=== PATIENT | female | born 1950 | race Asian ===

== ENCOUNTER 2023-01-03 20:45 | Inpatient (IN) | payer OTHER ==
[~2023-01-03] VITALS: Ht 160 cm; Wt 57.6 kg
[~2023-01-03 20:45] MED LIST: DEXT1CAP3 PO; DOCU-299 PO; HYDR-5122 PO; LANS30EC3 PO; LEVO500T6 PO; LOV40I SUBQ; MAGN400S60 PO; NA P135N9 RC; PEG15DRO10 OP; PROP20TA29 PO; ZOLP5TAB1 PO; [UNRECOGNIZED DRUG - CODE] PO
[2023-01-03 20:50] VITALS: BP 147/95
[2023-01-03] MEDS ORDERED: NACL 0.9% 2,000 ML IV ONE (21:05)
[2023-01-03] MEDS ORDERED: ACETAMINOPHEN 650 MG SUPP RC ONE (21:15)
--- NOTE | 2023-01-03 21:17 | NUR ---
temprure 102.9 oral
--- NOTE | 2023-01-03 21:20 | NUR ---
Patient resting in bed, A/Ox4, chest rise and fall symmetrical, no s/s of pain or s/s of distress, on monitor. Addendum: 01/04/23 at 0240 by [email or web address] Patient resting in bed, awake, chest rise and fall symmetrical, no s/s of pain or s/s of distress, on monitor.
[2023-01-03] MEDS ORDERED: cefTRIAXone 1,000 MG VIAL ONE (21:24)
[2023-01-03 21:29] LABS: BASOPHILS # (AUTO) 0.1 K/uL (0.00-0.22); BASOPHILS % (AUTO) 0.5 % (0.0-2.0); EOSINOPHILS % (AUTO) 0.1 % (0.0-4.0); HEMOGLOBIN 12.5 g/dL (12.0-16.0); LYMPHOCYTES # (AUTO) 1.7 K/uL (2.5-16.5); LYMPHOCYTES % (AUTO) 9.5 % (20.5-51.1); MEAN CORPUSCULAR HEMOGLOBIN 29 pg (27-31); MEAN CORPUSCULAR HGB CONC 34 g/dL (33-37); MEAN CORPUSCULAR VOLUME 86.3 fL (80-94); MONOCYTES # (AUTO) 1.3 K/uL (0.8-1.0); MONOCYTES % (AUTO) 7.2 % (1.7-9.3); NEUTROPHILS # (AUTO) 14.7 K/uL (1.8-7.7); NEUTROPHILS % (AUTO) 82.7 % (42.2-75.2); PLATELET COUNT (AUTO) 290 K/uL (140-450); RED BLOOD CELL COUNT(AUTO) 4.28 MIL/uL (4.20-5.40); RED CELL DISTRIBUTION WIDTH 13.8 % (11.6-13.7); WHITE BLOOD COUNT (AUTO) 17.7 K/uL (4.8-10.8)
[2023-01-03 21:46] LABS: ALBUMIN 2.9 g/dL (3.4-5.0); ANION GAP 14.8 (8-16); ASPARTATE AMINOTRANSFERASE 34 U/L (15-37); CARBON DIOXIDE 23.4 mmol/L (21-32); CHLORIDE 87 mmol/L (98-107); CREATININE 0.8 mg/dL (0.6-1.3); POTASSIUM 4.2 mmol/L (3.5-5.1); SODIUM SERUM 121 mmol/L (136-145); TOTAL BILIRUBIN 0.9 mg/dL (0.0-1.0); UREA NITROGEN, BLOOD 12 mg/dL (7-18)
[2023-01-03 21:50] LABS: GLUCOSE 471 mg/dL (74-106)
[2023-01-03 21:55] LABS: APPEARANCE,URINE CLEAR (CLEAR); BILIRUBIN,URINE NEGATIVE (NEGATIVE); BLOOD, URINE 1+ (NEGATIVE); COLOR,URINE YELLOW (YELLOW); LEUKOCYTE ESTERASE ,URINE 1+ (NEGATIVE); NITRITE, URINE POSITIVE (NEGATIVE); UGLUCOSE 3+ (NEGATIVE)
[2023-01-03 22:03] LABS: YEAST,URINE Few /HPF (None Seen)
[2023-01-03] MEDS ORDERED: HYDROcodone/APAP 5/325 MG 1 TAB TAB PO PRN (22:35)
[2023-01-03] MEDS ORDERED: MAGNESIUM OXIDE 400 MG TAB PO PRN (22:35)
[2023-01-03] MEDS ORDERED: MAG SULF 2000 MG/WATER PREMIX 50 ML IV PRN (22:35)
[2023-01-03] MEDS ORDERED: ONDANSETRON 4 MG/2 ML VIAL IVP PRN (22:35)
[2023-01-03] MEDS ORDERED: KCL 20 MEQ IN 100 mL PREMIX 200 ML IV PRN (22:35)
[2023-01-03] MEDS ORDERED: POTASSIUM CHLORIDE 10 MEQ TABER PO PRN (22:35)
[2023-01-03] MEDS: NACL 0.9% 1,000 ML IV SCH (22:57)
--- NOTE | 2023-01-03 23:30 | NUR ---
Patient resting in bed, awake, chest rise and fall symmetrical, no s/s of pain or s/s of distress, on monitor.
[2023-01-04] VITALS (8 sets, daily range): BP systolic 102–134; BP diastolic 42–86
[2023-01-04] MEDS ORDERED: ACETAMINOPHEN 650 MG SUPP RC ONE (00:30)
--- NOTE | 2023-01-04 01:00 | NUR ---
Patient resting in bed, awake, chest rise and fall symmetrical, no s/s of pain or s/s of distress, on monitor.
[2023-01-04] MEDS ORDERED: D50SYR IV (01:20)
[2023-01-04] MEDS ORDERED: FAMO-90 PO (01:20)
[2023-01-04] MEDS ORDERED: ASCO-5 PO (01:20)
[2023-01-04] MEDS ORDERED: ASPI-1856 PO (01:20)
[2023-01-04] MEDS ORDERED: LACT1TAB35 PO (01:20)
[2023-01-04] MEDS ORDERED: GLUC1VIA (01:20)
[2023-01-04] MEDS ORDERED: METF-346 PO (01:20)
[2023-01-04] MEDS ORDERED: BISA-246 RC (01:20)
[2023-01-04] MEDS ORDERED: ACET-2619 PO ×2 (01:20)
[2023-01-04] MEDS ORDERED: ALBU6.7H6 IH (01:20)
[2023-01-04] MEDS ORDERED: MULT-1328 PO (01:20)
[2023-01-04] MEDS ORDERED: [UNRECOGNIZED DRUG - CODE] PO (01:20)
[2023-01-04] MEDS ORDERED: CRAN450T5 PO (01:20)
[2023-01-04] MEDS ORDERED: RISP0.5T3 PO (01:21)
--- NOTE | 2023-01-04 02:39 | NUR ---
Patient will be admitted to care of dr. Jones. Admited to ICU. Will go to room 12. Belongings list completed. Report to Nuris MARTÍNEZ. Nuris MARTÍNEZ verbalized understanding of report, no further questions. Addendum: 01/04/23 at 0303 by [email or web address] Patient will be admitted to care of dr. Jones. Admited to ICU. Will go to room 3. Belongings list completed. Report to Nuris MARTÍNEZ. Nuris MARTÍNEZ verbalized understanding of report, no further questions.
--- NOTE | 2023-01-04 02:50 | NUR ---
RECEIVED PT. FROM ER AND REPORT GIVEN BY MAURICIO CASEY. PT. AWAKE, ALERT AND ORIENTED. ABLE TO FOLLOW COMMANDS. ON ROOM AIR WITH 98% O2 SAT. BILATERAL LUNG SOUNDS CLEAR. SINUS TACHYCARDIA ON THE MONITOR. IV TO RIGHT AC 20G CAPPED AND FLUSHED. IV TO LEFT FOREARM 20G INFUSING NS AT 80 ML/HR. RECEIVED PT. TEMP AFEBRILE 98.6. DIET CONSISTENT CARBOHYDRATE. ABDOMINAL SOUNDS ACTIVE. URINE INCONTINENT. SKIN INTACT. EYES PERRLA. PLACED CALL LIGHT WITHIN REACH. MAKE ALL NEEDS KNOWN. BEDLOCK AND PLACED IN THE LOWEST HEIGHT. NO S/S OF RESPIRATORY DISTRESS AND NO S/S OF PAIN. WILL CONT. TO MONITOR.
--- NOTE | 2023-01-04 05:10 | NUR ---
PROVIDED PT. PERSONAL HYGIENE, SPONGE BATH, ORAL CARE AND PT. COOPERATES WELL.
[2023-01-04 05:18] LABS: HEMATOCRIT 33.1 % (36-48); MEAN CORPUSCULAR HEMOGLOBIN 29 pg (27-31); MEAN CORPUSCULAR HGB CONC 33 g/dL (33-37); MEAN CORPUSCULAR VOLUME 87.1 fL (80-94); PLATELET COUNT (AUTO) 252 K/uL (140-450); RED CELL DISTRIBUTION WIDTH 13.7 % (11.6-13.7); WHITE BLOOD COUNT (AUTO) 23.9 K/uL (4.8-10.8)
[2023-01-04 05:35] LABS: ANION GAP 14.3 (8-16); CARBON DIOXIDE 21.1 mmol/L (21-32); CHLORIDE 98 mmol/L (98-107); CREATININE 0.7 mg/dL (0.6-1.3); GLUCOSE 359 mg/dL (74-106); POTASSIUM 3.4 mmol/L (3.5-5.1); SODIUM SERUM 130 mmol/L (136-145); UREA NITROGEN, BLOOD 8 mg/dL (7-18)
[2023-01-04 05:38] LABS: MAGNESIUM 1.5 mg/dL (1.8-2.4); PHOSPHORUS 2.1 mg/dL (2.5-4.9)
[2023-01-04 06:27] LABS: LYMPHOCYTES % (MANUAL) 5 % (20-46)
[2023-01-04 06:28] LABS: BASOPHILS % (MANUAL) 0 % (0-2); EOSINOPHILS % (MANUAL) 1 % (0-4); MONOCYTES % (MANUAL) 9 % (5-12)
--- NOTE | 2023-01-04 07:11 | NUR ---
REPORT GIVEN TO DAY SHIFT MAURICIO SIMS FOR CONTINUITY OF CARE. Addendum: 01/04/23 at 2214 by Vanessa Marquez RN, RN 1900-REPORT GIVEN BY LEVI MARTÍNEZ DAY SHIFT ICU NURSE
--- NOTE | 2023-01-04 07:12 | NUR ---
RECEIVED BEDSIDE REPORT FROM SHORTAGE WORKER RNCHADD FOR CONTINUITY OF CARE. PT AWAKE, ALERT AND ABLE TO MAKE NEEDS KNOWN. ROOM AIR, RESPIRATIONS EVEN AND UNLABORED. SR ON MONITOR. 20G IV TO RAC SALINE LOCK. 20G IV TO L FA INFUSING NS AT 80 ML/HR. MILD WEAKNESS THROUGHOUT. STANDARD PRECAUTION. HOB 30 DEGREES ASPIRATION PRECAUTION. CALL LIGHT WITHIN REACH. BED LOCKED AND IN LOWEST POSITION.
[2023-01-04] MEDS: NACL 0.9% 1,000 ML IV SCH ×2 (13:40→23:38)
--- NOTE | 2023-01-04 14:00 | NUR ---
SEEN AND EXAMINED BY DR. BECERRIL. NEW ORDERS RECEIVED.
[2023-01-04] MEDS ORDERED: DEXTROSE 50% 50 ML SYR IVP PRN (15:00)
[2023-01-04] MEDS: CEFEPIME 2,000 MG in DEXTROSE 5% 100 ML IV SCH (15:01)
[2023-01-04] MEDS: ACETAMINOPHEN 325 MG TAB PO PRN (15:39)
[2023-01-04] MEDS: BLOOD GLUCOSE MONITORING 1 DEV DEV FS SCH ×2 (16:33→20:43)
--- NOTE | 2023-01-04 16:51 | NUR ---
BLOOD SUGAR 482, PAGED DR. FOURNIER WHO ORDERED TO ADMINISTER 10 UNITS HUMALOG SQ.
[2023-01-04] MEDS: INSULIN LISPRO SLIDING SCALE 100 UNITS/ML VIAL SUBQ PRN ×2 (16:54→20:45)
--- NOTE | 2023-01-04 19:00 | NUR ---
ENDORSED BEDSIDE REPORT TO BOB, CARBONATION TESTER PASTOR, FOR CONTINUITY OF CARE.
--- NOTE | 2023-01-04 22:14 | NUR ---
1999- QUIETLY RESTING IN BED, HOB UP 60 DEGREE, SIDERAILS UP TIMES 3. BED IN LOW POS.
--- NOTE | 2023-01-04 22:16 | NUR ---
2200 - REPOSITIONED IN BED
[2023-01-05] VITALS: BP 98/53
[2023-01-05] MEDS: ACETAMINOPHEN 325 MG TAB PO PRN ×2 (03:46→03:49)
--- NOTE | 2023-01-05 03:51 | NUR ---
2300- INCONTINENT MODERATE AMT OF URINE, PERINIAL CARE DONE
--- NOTE | 2023-01-05 03:53 | NUR ---
0349- TYLENOL 650 MG PO GIVEN FOR TEMP 99.9
[2023-01-05 04:00] VITALS: BP 124/78
[2023-01-05 05:56] LABS: BASOPHILS # (AUTO) 0.1 K/uL (0.00-0.22); BASOPHILS % (AUTO) 0.4 % (0.0-2.0); EOSINOPHILS # (AUTO) 0.1 K/uL (0-0.4); HEMATOCRIT 32.5 % (36-48); HEMOGLOBIN 10.7 g/dL (12.0-16.0); LYMPHOCYTES # (AUTO) 1.4 K/uL (2.5-16.5); LYMPHOCYTES % (AUTO) 10.7 % (20.5-51.1); MEAN CORPUSCULAR HEMOGLOBIN 29 pg (27-31); MEAN CORPUSCULAR HGB CONC 33 g/dL (33-37); MEAN CORPUSCULAR VOLUME 87.2 fL (80-94); MONOCYTES # (AUTO) 1.7 K/uL (0.8-1.0); MONOCYTES % (AUTO) 12.9 % (1.7-9.3); NEUTROPHILS # (AUTO) 9.8 K/uL (1.8-7.7); PLATELET COUNT (AUTO) 264 K/uL (140-450); RED BLOOD CELL COUNT(AUTO) 3.72 MIL/uL (4.20-5.40); RED CELL DISTRIBUTION WIDTH 13.9 % (11.6-13.7)
--- NOTE | 2023-01-05 06:15 | NUR ---
0400-AM CARE AND LINEN CHANGED DONE
--- NOTE | 2023-01-05 06:16 | NUR ---
06- REPORT GVEN TO MATTY DELEON RN AND TRANSFFERRED TO 110 TELE UNIT NOW
[2023-01-05 06:22] LABS: ANION GAP 15.7 (8-16); CARBON DIOXIDE 19.3 mmol/L (21-32); CHLORIDE 100 mmol/L (98-107); CREATININE 0.6 mg/dL (0.6-1.3); GLUCOSE 247 mg/dL (74-106); SODIUM SERUM 131 mmol/L (136-145); UREA NITROGEN, BLOOD 6 mg/dL (7-18)
[2023-01-05 06:38] LABS: MAGNESIUM 1.9 mg/dL (1.8-2.4)
[2023-01-05 06:41] LABS: PHOSPHORUS 1.1 mg/dL (2.5-4.9)
[2023-01-05] MEDS: BLOOD GLUCOSE MONITORING 1 DEV DEV FS SCH ×4 (07:30→21:00)
--- NOTE | 2023-01-05 07:57 | NUR ---
INFORMED DR. BECERRIL OF PATIENTS 1.1 PHOSPHORUS LEVEL. AWAITING ADVISEMENT.
[2023-01-05 08:00] VITALS: BP 91/53
[2023-01-05] MEDS: INSULIN LISPRO SLIDING SCALE 100 UNITS/ML VIAL SUBQ PRN ×4 (08:38→22:15)
--- NOTE | 2023-01-05 08:58 | NUR ---
PATIENT HAS BEEN SCREENED AND CATEGORIZED MODERATE NUTRITION RISK. PATIENT WILL BE SEEN WITHIN 3-5 DAYS OF ADMISSION. / WENDY MARTINEZ RD
[2023-01-05 12:00] VITALS: BP 100/56
[2023-01-05] MEDS: NACL 0.9% 1,000 ML IV SCH (12:18)
[2023-01-05] MEDS: CEFEPIME 2,000 MG in DEXTROSE 5% 100 ML IV SCH (15:32)
[2023-01-05 16:00] VITALS: BP 141/67
--- NOTE | 2023-01-05 19:38 | NUR ---
ENDORSE PATIENT IN STABLE CONDITION TO PM SHIFT NURSE WHILE NS INFUSING AT 80ML/HR VIA R. FOREARM PIV SITE. PATIENT CONFUSE AND REST IN BED
--- NOTE | 2023-01-05 19:50 | NUR ---
HAND-OFF REPORT RECEIVED FROM RANJITH MARTÍNEZ FOR CONTINUITY OF CARE FOLLOWING BEDSIDE ROUNDS. ENDORSED PT CALLS OUT TO SMOKE FREQUENTLY. NS INFUSING 80ML/H.RFA 20 GA. SINUS RHYTHM. AT SHIFT CHANGE ONE EPISODE OF HR 137 NON SUSTAINED DURING PT SPELL OF CALLING OUT TO SMOKE. AT THIS TIME MD NOTIFIED BY CHARGE NURSE OF POSSIBLE NEED OF NICOTINE PATCH. STANDING BY FOR ADVISEMENT.
[2023-01-05 20:00] VITALS: BP 133/97
[2023-01-05] MEDS ORDERED: NICOTINE TRANSD SYS 21 MG/24 HR PATCH TD SCH (20:10)
--- NOTE | 2023-01-05 22:24 | NUR ---
ALL HS MEDS GIVEN. APPLE SAUCE SNACK. LIGHTS OUT. ATTEMPTING TO REST NOW.
[2023-01-06] VITALS: BP 112/86
[2023-01-06] MEDS: NACL 0.9% 1,000 ML IV SCH ×2 (00:30→12:49)
[2023-01-06 04:00] VITALS: BP 110/88
--- NOTE | 2023-01-06 06:00 | NUR ---
PT STATED RESTED WELL. NOTICEABLE DIFFERENCE IN RESTLESSNESS WITH APPLICATION OF NICOTINE PATCH. NO MORE CALLING OUT "TO SMOKE". SPONGE BATH WITH BED CHANGE. TURNS WELL SIDE TO SIDE. CONT TO MONITOR. APPROPRIATE RESPONSES ALTHOUGH REFUSED AM LAB DRAW INSPITE OF ATTEMPTS TO REASON WITH PT. TRY AGAIN LATER.
[2023-01-06] MEDS: BLOOD GLUCOSE MONITORING 1 DEV DEV FS SCH ×4 (07:04→23:00)
[2023-01-06] MEDS: INSULIN LISPRO SLIDING SCALE 100 UNITS/ML VIAL SUBQ PRN ×3 (07:06→17:43)
--- NOTE | 2023-01-06 07:23 | NUR ---
receive the patient from the door fitter rn Melina in rm [address] with admitting diagnosis of sepsis , urinary tract infection. will continue to monitor
--- NOTE | 2023-01-06 07:30 | NUR ---
HAND-OFF REPORT TO DIOGENES MARTÍNEZ. ENDORSED BLOOD SUGAR DOWN FROM 300'S TO 200'S; EFFECTIVENESS OF NICOTINE PATCH; REFUSED A.M LABS. NO ACUTE DISTRESS. RELINQUISHED CARE OF PT AT THIS TIME.
[2023-01-06 08:00] VITALS: BP 158/77
--- NOTE | 2023-01-06 08:32 | NUR ---
PT. WITH LOW CRISTOFER SCALE AT HIGH RISK, CONTINUE TO FOLLOW PRESSURE INJURY PREVENTION INTERVENTIONS. -POSITIONING: TURN AND REPOSITION PATIENT Q 2H OR SOONER USE PILLOWS TO KEEP BONY PROMINENCES FROM DIRECT CONTACT WITH SURFACES USE REPOSITIONING WEDGES TO PROVIDE 30-DEGREE ANGLE FOR SIDE LYING POSITIONS OFFLOADING OR FOAM DRESSING TO ALL TUBING TO PREVENT MEDICAL DEVICES RELATED PRESSURE INJURY -RE-EVALUATING AND MANAGING INCONTINENCE MONITOR SKIN CONDITION DURING POSITION CHANGE DO NOT MASSAGE REDNESS, BONY PROMINENCES FREQUENT LETY-CARE AND PROVIDE BARRIER CREAMS PRN IF SOILING MOISTURE CONTROL BY OFFER BED BULLOCK/URINAL /ABSORBENT PAD TO WICK AND HOLD MOISTURE KEEP SKIN DRY AND PROTECT FROM FRICTION -MANAGE FRICTION/SHEAR/MOBILITY KEEP HOB AT THE LOWEST LEVEL OF ELEVATION NO MORE THAN 30 DEGREE UNLESS OTHERWISE CONTRAINDICATED USE LIFT SHEET OR TRANSFER DEVICE TO MOVE PATIENT AND PREVENT LATERAL SHEER. PROTECT HEELS, ELBOWS BONY PROMINENCES WITH SKIN BERRIES OR FOAM DRESSING IF EXPOSED TO FRICTION OFFLOAD BILATERAL HEELS BY PLACING PILLOWS UNDER CALVES AT ALL TIMES, UNLESS OTHERWISE CONTRAINDICATED -PRESSURE REDISTRIBUTION SURFACE THERAPY BRANDEE ISOFLEX MATTRESS -NUTRITION: PLEASE FOLLOW RD RECOMMENDATIONS AND OFFER NUTRITION SUPPLEMENTS IF ORDERED. PLEASE CONTACT WOUND CARE NURSE FOR ANY QUESTION AND CHANGE OF WOUND CONDITION.
[2023-01-06] MEDS: NICOTINE TRANSD SYS 21 MG/24 HR PATCH TD SCH (09:48)
[2023-01-06] MEDS: SODIUM PHOS / POTASSIUM PHOS 1 PKT PDR PO SCH (09:48)
[2023-01-06 12:00] VITALS: BP 120/82
[2023-01-06 16:00] VITALS: BP 133/72
--- NOTE | 2023-01-06 16:03 | NUR ---
DC [age] YRS OLD FEMALE PATIENT [place] [facility] [place] OF UTI SEPS[place]. PATIENT HAS A HX OF HTN AND DEMENTIA. CXR SHOWED NO ACUTE FINDINGS. RAPID COVID TEST NEGATIVE. ADMINISTERED IVF, IV ABX CEFEPIME AND CONTINUED HOME MEDS. CONSULTED WITH ID AND NEPHRO. DC PLAN [place] [facility] [place] CM TO FOLLOW Addendum: 01/07/23 at 1121 by ILA GAR RECEIVED ORDER FOR PATIENT TO GOT TO SNF FOR IV ABX. [facility] [place] [facility] [place]POKE WITH SHARAD [place] [facility] [place] AT [address] [place] [address]. PATIENT WILL BE GOING TO ROOM 52-C UNDER DR PHILLIPS. TRANSPORTATION SET UP WITH [employer] [facility]SP[facility] FOR A 1430 LIME BURNER TIME. TRANSPORTATION AUTH #[id number] AND [employer]LTER AUTH#[id number] GIVEN BY YESENIA AT [facility] NURSE MAYRA AWARE OF THE ABOVE INFORMATION.
[2023-01-06] MEDS: CEFEPIME 2,000 MG in DEXTROSE 5% 100 ML IV SCH (17:40)
--- NOTE | 2023-01-06 18:54 | NUR ---
will endorse to shift superintendent caustic cresylate rn for continuity of care , still on antibiotics therapy for UTI . also blood sugar monitoring
[2023-01-06 20:00] VITALS: BP 140/70
--- NOTE | 2023-01-06 23:00 | NUR ---
REFEUSED HEP SQ , REFUSED BS CHECK - WILL ENDORSE .
[2023-01-07] MEDS: NACL 0.9% 1,000 ML IV SCH
--- NOTE | 2023-01-07 02:00 | NUR ---
SLEEPING BU EASILY AWAKEABLE .WILL CONT. TO MONITOR
[2023-01-07 04:00] VITALS: BP 128/83
--- NOTE | 2023-01-07 04:00 | NUR ---
RENDERING AM CARE W/ THE HELP OF MAURICIO FOREMAN , PT REQUESTING TO USE YELLOW DIAPER , EDUCATES PT THE ADVANTAGES OF YELLOW DIAPER , BUT PT STILL INSISTING TO USE IT FOR HER - WILL ENDORSE .
--- NOTE | 2023-01-07 06:00 | NUR ---
INFILTRATED R ARM IV SITE - REMEOVED IV NEEDLE - NEEDLE INTACT , W/ MIN. BLEEDING . WILL CONT. TO MONITOR . WILL ENDORSE TO AM SHIFT TO MONITOR THE EFFECRED ARM L ARM IF WILL BECOME MUCH SWOLLEN - THER IS PLASTIC BAND ON THAT ARM .
[2023-01-07] MEDS: INSULIN LISPRO SLIDING SCALE 100 UNITS/ML VIAL SUBQ PRN ×2 (06:32→12:35)
[2023-01-07] MEDS: BLOOD GLUCOSE MONITORING 1 DEV DEV FS SCH ×2 (06:32→12:17)
[2023-01-07 06:57] LABS: BASOPHILS # (AUTO) 0.1 K/uL (0.00-0.22); BASOPHILS % (AUTO) 1.2 % (0.0-2.0); EOSINOPHILS # (AUTO) 0.2 K/uL (0-0.4); EOSINOPHILS % (AUTO) 2.7 % (0.0-4.0); HEMATOCRIT 32.8 % (36-48); LYMPHOCYTES # (AUTO) 1.6 K/uL (2.5-16.5); LYMPHOCYTES % (AUTO) 22.3 % (20.5-51.1); MEAN CORPUSCULAR HEMOGLOBIN 29 pg (27-31); MEAN CORPUSCULAR HGB CONC 34 g/dL (33-37); MEAN CORPUSCULAR VOLUME 86.4 fL (80-94); MONOCYTES % (AUTO) 13.3 % (1.7-9.3); NEUTROPHILS # (AUTO) 4.5 K/uL (1.8-7.7); NEUTROPHILS % (AUTO) 60.5 % (42.2-75.2); PLATELET COUNT (AUTO) 319 K/uL (140-450); RED CELL DISTRIBUTION WIDTH 13.9 % (11.6-13.7); WHITE BLOOD COUNT (AUTO) 7.4 K/uL (4.8-10.8)
[2023-01-07 07:22] LABS: ANION GAP 12.4 (8-16); CARBON DIOXIDE 22.4 mmol/L (21-32); CHLORIDE 104 mmol/L (98-107); CREATININE 0.4 mg/dL (0.6-1.3); GLUCOSE 273 mg/dL (74-106); POTASSIUM 3.8 mmol/L (3.5-5.1); SODIUM SERUM 135 mmol/L (136-145); UREA NITROGEN, BLOOD 6 mg/dL (7-18)
[2023-01-07 07:27] LABS: MAGNESIUM 1.6 mg/dL (1.8-2.4); PHOSPHORUS 2.4 mg/dL (2.5-4.9)
--- NOTE | 2023-01-07 08:00 | NUR ---
ENDORSED TO AM NURSE FOR CONT. OF CARE . DRESSING CHANGED TO PREVIOUSLY L AC OLD IV SITE - W/ MIN. BLEEDING - ENDORSED TO TABITHA TO CONT. THE BLEEDING . PT AWAKE
--- NOTE | 2023-01-07 08:00 | NUR ---
RECEIVED REPORT FROM NIGHTSHIFT NURSE ULICES FOR CONTINUITY OF CARE. PT IN STABLE CONDITION.
--- NOTE | 2023-01-07 08:15 | NUR ---
PT BEGAN YELLING FOR CIGARETTE. EDUCATED PT THAT SMOKING WAS NOT ALLOWED ON FACILITY PREMISES AND OFFERED NICOTINE PATCH. PT REFUSED AND KEPT YELLING FOR CIGARETTE. DR. BECERRA AT THE BEDSIDE.
--- NOTE | 2023-01-07 08:23 | NUR ---
PER DR. BECERRA, PT TO BE DISCHARGED BACK TO [facility] [place]. NOTIFIED TAPE FOLDING MACHINE OPERATOR.
[2023-01-07] MEDS ORDERED: LEVO750T75 PO (08:25)
[2023-01-07] MEDS ORDERED: levoFLOXacin 750 MG TAB PO SCH (09:00)
--- NOTE | 2023-01-07 09:00 | NUR ---
ENDORSED PT TO ADZE RN FOR CONTINUITY OF CARE. PT IN STABLE CONDITION.
[2023-01-07] MEDS: SODIUM PHOS / POTASSIUM PHOS 1 PKT PDR PO SCH (09:28)
[2023-01-07] MEDS: NICOTINE TRANSD SYS 21 MG/24 HR PATCH TD SCH (09:28)
--- NOTE | 2023-01-07 13:59 | NUR ---
01/07/23 RD INITIAL ASSESSMENT COMPLETED PLEASE REFER TO NUTRITION ASSESSMENT UNDER CARE ACTIVITY FOR ESTIMATED NUTRITIONAL NEEDS. 1. CONTINUE [facility] DIET TOLERATED 2. RD TO FOLLOW-UP 7 DAYS, LOW RISK [address] RD
--- NOTE | 2023-01-07 15:00 | NUR ---
patient discharged to [facility] [place]. stable upon discharged.
== END 2023-01-07 14:45 | DRG 720 ==
LOC: MED 20:45 → MTU 22:46 → MIC 01-04 01:53 → MTU 01-05 06:36
PROVIDERS: ADMIT Hospitalist; ATTEND Internal Medicine Infectious Disease
DX: A41.59 Other Gram-negative sepsis (principal); G93.41 Metabolic encephalopathy; E44.0 Moderate protein-calorie malnutrition; F03.90 Unspecified dementia, unspecified severity, without behavioral disturbance, psychotic disturbance, mood disturbance, and anxiety; E87.1 Hypo-osmolality and hyponatremia; N39.0 Urinary tract infection, site not specified; I10 Essential (primary) hypertension; E11.9 Type 2 diabetes mellitus without complications; E86.1 Hypovolemia; Z20.822 Contact with and (suspected) exposure to COVID-19; Z87.891 Personal history of nicotine dependence; Z79.1 Long term (current) use of non-steroidal anti-inflammatories (NSAID); Z79.899 Other long term (current) drug therapy; E83.42 Hypomagnesemia; Z68.22 Body mass index [BMI] 22.0-22.9, adult
CPT/HCPCS: 36415; 71045; 80048; 80053; 81001; 82550; 82948; 83605; 83735; 83880; 84100; 84484; 85025; 87040; 87081; 87086; 93005; 96365; 99291; J0692; J0696; J1644; J1815; J3475; J7060; Q0092